=== PATIENT | female | born 1990 | race African-American/Black ===

== ENCOUNTER 2017-03-12 12:25 | Emergency (ER) | payer SELFPAY ==
[~2017-03-12] VITALS: Ht 167.6 cm; Wt 54.4 kg
[~2017-03-12 12:25] MED LIST: AZITHROMYCIN250 MG ORAL; BACTRIM-DS1 EA ORAL; CEPHALEXIN500 MG ORAL; KEFLEX500 MG ORAL; NKM
[2017-03-12 12:35] VITALS: BP 116/75
--- NOTE | 2017-03-12 12:42 | Emergency Room Report ---
History of Present Illness General Chief Complaint: Upper Respiratory Illness Source: Patient Present Illness HPI 27-year-old female presents emergency department complaining of increased lacrimation, sticky discharge and erythema of the bilateral eyes x2 days. Patient also reports recently returning from [facility] where she has been experiencing excessive sneezing, runny nose, sore throat. Patient denies fevers, chills, nausea, vomiting, neck pain or stiffness. She denies ill contacts. She is up-to-date with vaccinations. Patient states she does wear contact lenses. Patient denies blurry vision, eye pain, floaters or flashing lights. She denies eye trauma.denies FB sensation, reports mild burning when looking with sunlight only not artificial light. Denies CP, Palpitations, LOC, AMS, dizziness, Changes in Vision, Sensation, paresthesias, or a sudden severe headache. Allergies: Coded Allergies: No Known Allergies (Unverified , 07/20/13) Patient History Past Medical History: see triage record Past Surgical History: none Pertinent Family History: none Now: No Immunizations: UTD Reviewed Nursing Documentation: PMH: Agreed, PSxH: Agreed Nursing Documentation-PMH Past Medical History: No Stated History Hx Gastrointestinal Problems: Yes - Lt OVARIAN CYST in 2011 Review of Systems All Other Systems: negative except mentioned in HPI Physical Exam Vital Signs Date Time Temp Pulse Resp B/P Pulse Ox O2 Delivery O2 Flow Rate FiO2 03/12/17 12:28 97.9 78 16 116/75 97 Sp02 EP Interpretation: reviewed, normal General Appearance: no apparent distress, alert, GCS 15, non-toxic Head: normocephalic, atraumatic Eyes: bilateral eye EOMI, bilateral eye PERRL, bilateral eye normal inspection , bilateral eye other - bilateral purulent D/C noted, no lid swelling, EOMI, PERRL pupils ENT: hearing grossly normal, normal pharynx, no angioedema, normal voice, TMs + canals normal, uvula midline, nasal congestion - clear rhinorrhea bialterally Neck: full range of motion, supple/symm/no masses Respiratory: lungs clear, normal breath sounds, speaking full sentences Cardiovascular #1: regular rate, rhythm, no edema Musculoskeletal: back normal, gait/station normal, normal range of motion, non- tender Neurologic: alert, oriented x3, responsive, motor strength/tone normal, sensory intact, speech normal Psychiatric: judgement/insight normal, memory normal, mood/affect normal Skin: normal color, no rash, warm/dry, well hydrated Lymphatic: no adenopathy Medical Decision Making PA Attestation Dr. Johnston is my supervising Physician whom patient management has been discussed with. Diagnostic Impression: Primary Impression: Conjunctivitis of both eyes Qualified Codes: H10.33 - Unspecified acute conjunctivitis, bilateral Additional Impression: Allergic rhinitis Qualified Codes: J30.9 - Allergic rhinitis, unspecified ER Course 27-year-old female presents emergency department complaining of increased lacrimation, sticky discharge and erythema of the bilateral eyes x2 days. Patient also reports recently returning from [facility] where she has been experiencing excessive sneezing, runny nose, sore throat. Patient denies fevers, chills, nausea, vomiting, neck pain or stiffness. She denies ill contacts. She is up-to-date with vaccinations. Patient states she does wear contact lenses. Patient denies blurry vision, eye pain, floaters or flashing lights. She denies eye trauma. Ddx considered but are not limited to: corneal abrasion, acute glaucoma, globe rupture, FB, Corneal Ulcer, conjunctivitis. Iridis, orbital cellulitis,keratitis , sinusitis Vital signs: are WNL, pt. is afebrile H&PE are most consistent with: bacterial conjunctivitis, and allergic rhinitis ORDERS: none at this time. ED INTERVENTIONS: none at this time. -Patient education: Discussed with patient to discontinue use of contact lenses until infection is cleared discussed followup with reduction furnace operator helper. DISCHARGE: At this time pt. is stable for d/c to home. Will provide printed patient care instructions, and any necessary prescriptions. Care plan and follow up instructions have been discussed with the patient prior to discharge. Last Vital Signs Date Time Temp Pulse Resp B/P Pulse Ox O2 Delivery O2 Flow Rate FiO2 03/12/17 12:35 97.9 75 16 116/75 97 Disposition: HOME, SELF-CARE Condition: Stable Scripts Cetirizine Hcl* (ZYRTEC*) 10 Mg Tablet 10 MG ORAL DAILY for 14 Days, #30 TAB 0 Refills Prov: Tayler Renteria P.Marisela 03/12/17 Ofloxacin (OCUFLOX) 5 Ml Drops 3 DROP OP TID for 5 Days, #5 ML 1 Refill Prov: Tayler Renteria 03/12/17 Patient Instructions: Allergic Rhinitis, Bacterial Conjunctivitis, [id number] Additional Instructions: Take medications as directed. Follow up with PCP in 3-5 days. Follow up with Home Furnishings Sales Representative , DO NOT USE CONTACTS until infection has cleared Return sooner to ED if new symptoms occur, or current symptoms become worse. - Please note that this Emergency Department Report was dictated using [employer] grower technology software, occasionally this can lead to erroneous entry secondary to interpretation by the dictation equipment. Tayler Renteria March 12, 2017 12:42
[2017-03-12] MEDS ORDERED: OCUFLOX5 ML OP (12:44)
[2017-03-12] MEDS ORDERED: ZYRTEC10 MG ORAL (12:44)
[2017-03-12 12:48] VITALS: BP 116/75
== END 2017-03-12 12:50 | disposition home or self-care (01) ==
LOC: EMR 12:45
DX: H10.9 Unspecified conjunctivitis (principal); J30.9 Allergic rhinitis, unspecified
CPT/HCPCS: 99284

== ENCOUNTER 2017-11-11 20:36 | Emergency (ER) | payer SELFPAY ==
[~2017-11-11] VITALS: Ht 162.6 cm; Wt 55.3 kg
[~2017-11-11 20:36] MED LIST changes: +OCUFLOX5 ML OP; +ZYRTEC10 MG ORAL
[2017-11-11 20:54] VITALS: BP 134/89
[2017-11-11] MEDS ORDERED: IBUPROFEN600 MG ORAL (21:07)
[2017-11-11] MEDS ORDERED: KEFLEX500 MG ORAL (21:07)
--- NOTE | 2017-11-11 21:07 | Emergency Room Report ---
History of Present Illness General Chief Complaint: Abdominal Pain Source: Patient Present Illness HPI This is a 27-year-old female with no significant past medical history. She presents with UTI symptoms. Ongoing for last 4 days. She has urgency and frequency. Also with dysuria. No hematuria. She got into the clinic but they were full. She came in tonight because she has some left lower caught her and pain. Similar symptom in the past. No vomiting. Allergies: Coded Allergies: No Known Allergies (Unverified , 07/20/13) Patient History Past Medical History: see triage record, old chart reviewed Past Surgical History: none Pertinent Family History: none Social History: Denies: smoking Last Menstrual Period: 10/19/2017 Now: No Immunizations: other Reviewed Nursing Documentation: PMH: Agreed, PSxH: Agreed Nursing Documentation-PMH Past Medical History: No Stated History Hx Gastrointestinal Problems: Yes - Lt OVARIAN CYST in 2011 Review of Systems Eye: Denies: eye pain, blurred vision ENT: Denies: ear pain, nose congestion, throat swelling Respiratory: Denies: cough, shortness of breath Cardiovascular: Denies: chest pain, palpitations Gastrointestinal: Denies: abdominal pain, diarrhea, nausea, vomiting Genitourinary: Reports: dysuria, frequency, pain, urgency Musculoskeletal: Denies: back pain, joint pain Skin: Denies: rash Neurological: Denies: headache, numbness Endocrine: Denies: increased thirst, increased urine Hematologic/Lymphatic: Denies: easy bruising All Other Systems: negative except mentioned in HPI Physical Exam Vital Signs Date Time Temp Pulse Resp B/P (MAP) Pulse Ox O2 Delivery O2 Flow Rate FiO2 11/11/17 20:39 99.9 86 15 134/89 95 Room Air vitals Lang Sp02 Interpretation: reviewed, normal General Appearance: well appearing, no apparent distress, alert Head: normocephalic, atraumatic Eyes: bilateral eye PERRL, bilateral eye EOMI ENT: hearing grossly normal, normal pharynx Neck: full range of motion, supple, no meningismus Respiratory: chest non-tender, lungs clear, normal breath sounds Cardiovascular #1: regular rate, rhythm, no murmur Gastrointestinal: normal bowel sounds, non tender, no mass, no organomegaly, no bruit, non-distended Musculoskeletal: back normal, gait/station normal, normal range of motion Psychiatric: mood/affect normal Skin: warm/dry Medical Decision Making Diagnostic Impression: Primary Impression: UTI (urinary tract infection) Qualified Codes: N30.00 - Acute cystitis without hematuria ER Course Patient presents with descending UTI. No CVA tenderness but does have left lower quadrant tenderness. No evidence of sepsis or pyelonephritis. We'll discharge home with antibiotics. Last Vital Signs Date Time Temp Pulse Resp B/P (MAP) Pulse Ox O2 Delivery O2 Flow Rate FiO2 11/11/17 20:54 99.9 85 15 134/89 95 Room Air Status: improved Disposition: HOME, SELF-CARE Condition: Stable Scripts Ibuprofen* (MOTRIN*) 600 Mg Tablet 600 MG ORAL Q8H Y for For Pain, #30 TAB 0 Refills Prov: AVANI SPEARS M.D. 11/11/17 Cephalexin* (KEFLEX*) 500 Mg Capsule 500 MG ORAL TID, #21 CAP 0 Refills Prov: AVANI SPEARS M.D. 11/11/17 Additional Instructions: Followup with your DrLo in 2-3 days. Return for fever, increasing pain, vomiting or any concern. AVANI SPEARS M.D. Nov 11, 2017 21:07
[2017-11-11] MEDS ORDERED: Cephalexin 500mg cap ORAL ONE (21:15)
[2017-11-11 21:16] VITALS: BP 134/89
== END 2017-11-11 21:16 | disposition home or self-care (01) ==
LOC: EMR 20:59
DX: N39.0 Urinary tract infection, site not specified (principal)
CPT/HCPCS: 87086; 87181; 99283

== ENCOUNTER 2019-03-14 13:42 | Emergency (ER) | payer OTHER ==
[~2019-03-14] VITALS: Ht 162.6 cm; Wt 59.0 kg
[~2019-03-14 13:42] MED LIST changes: +IBUPROFEN600 MG ORAL
[2019-03-14 13:49] VITALS: BP 136/91
--- NOTE | 2019-03-14 13:49 | NUR ---
ED Nurse Note: Patient walked into ED c/o left knee swelling due to bug bite, patient reports the swelling is so painful 08/04 at this time. patient is alert awake x4 ambulatory breathing unlabored and even
[2019-03-14] MEDS ORDERED: Tylenol #3 tab (300mg/30mg) ORAL ONE (14:15)
[2019-03-14] MEDS ORDERED: Augmentin 875mg Tab ORAL ONE (14:15)
[2019-03-14] MEDS ORDERED: ACETAMINOPHEN-1 EAC1 ORAL (14:44)
[2019-03-14] MEDS ORDERED: AUGMENTIN 875-1 EAC1 ORAL (14:44)
[2019-03-14 14:55] VITALS: BP 136/91
--- NOTE | 2019-03-14 14:55 | NUR ---
ER DISCHARGE NOTE: Patient is cleared to be discharged per ERMD DR SANDOVAL, pt is aox4, on room air, with stable vital signs. pt was given dc and prescription instructions, pt was able to verbalize understanding, pt id band removed without complications. pt is able to ambulate with steady gait. pt took all belongings.
--- NOTE | 2019-03-14 16:24 | Emergency Room Report ---
History of Present Illness General Chief Complaint: Pain Source: Patient Present Illness HPI 29-year-old female presents ED for evaluation. Complaining of pain and swelling to the left knee. States that 2 days ago she there was an insect bite on her left knee where she started to scratch. States it is now swollen and red. Pain is dull, 6 out of 10, nonradiating. Denies fevers or chills. Denies any discharge. Is able to bear weight. No other aggravating relieving factors. Denies any associated symptoms Allergies: Coded Allergies: No Known Allergies (Unverified , 07/20/13) Patient History Past Medical History: other - ovarian cyst Past Surgical History: none Pertinent Family History: none Social History: Denies: smoking, alcohol use, drug use Last Menstrual Period: 03/09/19 Now: No Immunizations: UTD Reviewed Nursing Documentation: PMH: Agreed; PSxH: Agreed Nursing Documentation-PM Past Medical History: No Stated History Hx Gastrointestinal Problems: Yes - Lt OVARIAN CYST in 2011 Review of Systems All Other Systems: negative except mentioned in HPI Physical Exam Vital Signs Date Time Temp Pulse Resp B/P (MAP) Pulse Ox O2 Delivery O2 Flow Rate FiO2 03/14/19 13:49 98.4 91 18 96 Room Air 03/14/19 13:49 136/91 Sp02 EP Interpretation: reviewed, normal General Appearance: no apparent distress, alert, GCS 15, non-toxic Head: normocephalic, atraumatic Eyes: bilateral eye normal inspection, bilateral eye PERRL ENT: hearing grossly normal, normal pharynx, no angioedema, normal voice Neck: full range of motion, supple/symm/no masses Respiratory: chest non-tender, lungs clear, normal breath sounds, speaking full sentences Cardiovascular #1: regular rate, rhythm, no edema Cardiovascular #2: 2+ carotid (R), 2+ carotid (L), 2+ radial (R), 2+ radial (L) , 2+ dorsalis pedis (R), 2+ dorsalis pedis (L) Gastrointestinal: normal bowel sounds, non tender, soft, non-distended, no guarding, no rebound Rectal: deferred Genitourinary: normal inspection, no CVA tenderness Musculoskeletal: back normal, gait/station normal, normal range of motion Neurologic: alert, oriented x3, responsive, motor strength/tone normal, sensory intact, speech normal Psychiatric: judgement/insight normal, memory normal, mood/affect normal, no suicidal/homicidal ideation Reflexes: 3+ bicep (R), 3+ bicep (L), 3+ tricep (R), 3+ tricep (L), 3+ knee (R) , 3+ knee (L) Skin: other - erythema/swelling L knee. no fluctuance or discharge Lymphatic: no adenopathy Medical Decision Making Diagnostic Impression: Primary Impression: Cellulitis Qualified Codes: L03.116 - Cellulitis of left lower limb ER Course Hospital Course 29-year-old female presents to ED with redness, swelling to left knee Differential diagnoses include: Cellulitis, dermatitis, insect bite, abscess Clinical course Patient placed on stretcher. After initial history, physical exam reveals a young female in no acute distress. On exam there is a site for mild erythema and induration to the left knee just overlying the patella. There is no fluctuance. full range of motion is noted in the left knee and there is no concern for any signs of infection to the joint. Likely an overlying cellulitis and not a infected joint. History and presentation is not suspicious of a septic joint. Discussed findings with patient. We will not tap the knee at this time. We'll discharge with antibiotics and pain meds. Given Augmentin and Tylenol No. 3 here. Safe for discharge and close outpatient follow-up. We'll provide ortho referrals Diagnosis - cellulitis stable and discharged to home with prescription for augmentin, tylenol #3. warm compresses. Instructed to followup with PMD/ortho. Instructed return to ED if symptoms recur or worsen Last Vital Signs Date Time Temp Pulse Resp B/P (MAP) Pulse Ox O2 Delivery O2 Flow Rate FiO2 03/14/19 14:55 98.4 91 18 136/91 96 Room Air Status: improved Disposition: HOME, SELF-CARE Condition: Stable Scripts Acetaminophen With Codeine (T#3) (TYLENOL #3 TAB*) Y Tab 1 TAB ORAL Q8H PRN for For Pain for 3 Days, TAB Prov: Maximiliano Rangel MD 03/14/19 Amoxicillin/Potassium Clav 875-125* (AUGMENTIN 875-125 TABLET*) 1 Each Tablet 1 TAB ORAL TWICE A DAY, #14 TAB Prov: Maximiliano Rangel MD 03/14/19 Referrals: NOT CHOSEN IPA/MD,REFERRING (PCP) [facility] Open 24 hour /7 days a week by Appointment Only [address] [facility] [id number] Departure Forms: Return to Work Return to Work Date: March 15, 2019 Work Restrictions: No Prolonged Standing Patient Instructions: Cellulitis, [id number] Maximiliano Rangel MD March 14, 2019 16:24
== END 2019-03-14 14:52 | disposition home or self-care (01) ==
LOC: EMR 14:40
DX: L03.116 Cellulitis of left lower limb (principal)
CPT/HCPCS: 99282